=== PATIENT | male | born 1945 ===

== ENCOUNTER 2020-10-11 13:47 | Inpatient (IN) | payer MEDICARE, OTHER ==
[~2020-10-11] VITALS: Ht 167.6 cm; Wt 96.2 kg
[2020-10-11] MEDS ORDERED: COLACE 100100 MG/CAP PO (15:24)
[2020-10-11] MEDS ORDERED: PRINZIDE 25 MG-1 TAB PO (15:25)
[2020-10-11] MEDS ORDERED: FLOMAX 0.40.4 MG/CAP PO (15:25)
[2020-10-11] MEDS ORDERED: REMERON30 MG PO (15:26)
[2020-10-11] MEDS ORDERED: COREG 6.256.25 MG/TA PO (15:27)
[2020-10-11] MEDS ORDERED: GLUCOPHAGE500 MG/TAB PO (15:27)
[2020-10-11] MEDS ORDERED: GOOD NEIGH1200 MG/15 (15:28)
[2020-10-11 15:40] VITALS: BP 167/72; PULSE 65; TEMP 98
--- NOTE | 2020-10-11 18:35 | NUR ---
Pt assessment complete. Pt arrived via EMS to room 356, he is currently A/O but forgetful. He denies any pain. Breathing is even and unlabored on RA. Pt has daugherty DD, clear yellow urine. IV to R hand. POC discussed with patient who verbalizes understanding. Fall precautions in place. Will continue to monitor.
[2020-10-11 18:46] LABS: CREATININE, serum 7.84 (0.66-1.25); FRACTIONAL EXCRETION OF NA+ 22.7 %
[2020-10-11 19:51] VITALS: BP 128/68; PULSE 66; TEMP 97.8
--- NOTE | 2020-10-11 20:00 | NUR ---
Assessment complete. Patient is able to follow commands but is not oriented, only being able to state his year and tell time on clock in room. He has bilateral lower extremity edema with 1+ pitting; Heels are elevated on pillow. Guzman catheter in place is draining clear, yellow urine. Will continue to monitor.
[2020-10-11 22:51] LABS: URINE PROTEIN:CREAT RATIO 2.66 (0.00-0.14)
[2020-10-11 23:45] VITALS: BP 186/73; PULSE 58; TEMP 97.5
[2020-10-12] VITALS (8 sets, daily range): BP systolic 133–181; BP diastolic 61–82; PULSE 62–75; TEMP 97.4–98.4
--- NOTE | 2020-10-12 02:14 | NUR ---
Patient's BP 171/64 at 0130. PRN PO apresoline 25 mg administered. BP rechecked at this time and is 154/63. Will continue to monitor.
--- NOTE | 2020-10-12 05:45 | NUR ---
Patient's BP 181/61 at this time. 25 mg PO apresoline administered. Patient denies headache. Will continue to monitor.
[2020-10-12 05:55] LABS: BASO % 0.5 % (0.0-2.0); EOS # 0.4 (0.0-0.7); EOS % 4.8 % (0-4.0); GRAN # 6.3 (1.4-6.5); HEMOGLOBIN 12.9 g/dl (13.5-18.0); LYMPH # 1.3 (1.2-3.4); LYMPH % 14.5 % (20.0-51.0); MEAN CELL VOLUME 89 fl (80.0-100.0); MEAN CORPUSCULAR HEMOGLOBIN 29 pg (27.0-31.0); MEAN CORPUSCULAR HGB CONC 32 g/dl (33.0-37.0); MEAN PLATELET VOLUME 12.8 fl (7.4-10.4); MONO # 0.7 (0.1-0.6); MONO % 7.9 % (1.7-9.3); PLATELET COUNT 151 K/mm3 (130-400); REDCELL DISTRIBUTION WIDTH-CV 13.2 % (11.5-14.5)
[2020-10-12 06:08] LABS: ALBUMIN 3.7 gm/dL (3.5-5.0); CALCIUM 8.3 mg/dL (8.4-10.2); CREATININE, serum 7.62 (0.66-1.25); PHOSPHOROUS 5.5 mg/dL (2.5-4.5); POTASSIUM 4.1 mmol/L (3.4-5.0)
--- NOTE | 2020-10-12 07:28 | NUR ---
bedside shift report received from CLAUDIA Reynoso
--- NOTE | 2020-10-12 08:00 | NUR ---
bed alarm sounding and entered room and patient standing at bedside, he stated he just wanted to stand for a minute, allowed to stand for a few minutes and then assisted back into bed, full assessment completed, see interventions for further info, is alert and partially oriented, oriented to self and knew he was in the hospital but thought he was in [place], when reoriented then he remembered being here and meeting a new Dr yesterday
--- NOTE | 2020-10-12 08:17 | NUR ---
repositioned up in bed to eat breakfast
--- NOTE | 2020-10-12 09:58 | NUR ---
resting in bed, denies needs
--- NOTE | 2020-10-12 10:53 | NUR ---
physical therapy in and working with patient, ambulated in abbasi with steady gait
--- NOTE | 2020-10-12 11:30 | NUR ---
resting in bed with eyes closed
--- NOTE | 2020-10-12 12:08 | NUR ---
First visit from the middle or intermediate school principal. No needs right now.
--- NOTE | 2020-10-12 12:13 | NUR ---
dozing at intervals, awakened for VS and asks why he is here, tried to explain he needs to see a special Dr. is justs confused by this but is coopertive
--- NOTE | 2020-10-12 12:38 | NUR ---
bed alarm sounded and a nurse entered room, patient wanting to move around a little, assisted up and ambulated short distance, Dr Kang in to see patient
--- NOTE | 2020-10-12 13:09 | NUR ---
bedside report given to CLAUDIA Mir
--- NOTE | 2020-10-12 15:55 | NUR ---
SW attempted intake however patient was asleep.
--- NOTE | 2020-10-12 20:52 | NUR ---
PT IN BED WITH HOB ELEVATED TO 60DEGREE ANGLE WITH CALL LIGHT WITHIN REACH. PT DENIES PAIN OR DISCOMFORT. PT IS CONFUSED. PT THINKS THAT HE IS AT A [facility]OT[facility]. PT HAS NO NEEDS AT THIS TIME, CALL LIGHT WITHIN REACH.
[2020-10-13 04:10] VITALS: BP 152/62; PULSE 63; TEMP 97.9
[2020-10-13 06:36] LABS: BASO % 0.5 % (0.0-2.0); EOS # 0.5 (0.0-0.7); EOS % 5.7 % (0-4.0); GRAN # 5.8 (1.4-6.5); GRAN % 66.6 % (42.2-75.2); HEMOGLOBIN 11.8 g/dl (13.5-18.0); LYMPH # 1.5 (1.2-3.4); LYMPH % 17.4 % (20.0-51.0); MEAN CELL VOLUME 87 fl (80.0-100.0); MEAN CORPUSCULAR HEMOGLOBIN 28 pg (27.0-31.0); MEAN CORPUSCULAR HGB CONC 33 g/dl (33.0-37.0); MEAN PLATELET VOLUME 12.5 fl (7.4-10.4); MONO # 0.8 (0.1-0.6); MONO % 9.5 % (1.7-9.3); PLATELET COUNT 150 K/mm3 (130-400); RED BLOOD COUNT 4.16 M/mm3 (4.20-5.60); REDCELL DISTRIBUTION WIDTH-CV 13.1 % (11.5-14.5)
[2020-10-13 06:51] LABS: ALBUMIN 3.4 gm/dL (3.5-5.0); CALCIUM 7.9 mg/dL (8.4-10.2); CREATININE, serum 6.13 (0.66-1.25); POTASSIUM 3.6 mmol/L (3.4-5.0)
--- NOTE | 2020-10-13 06:54 | NUR ---
PT HAD NO ISSUES OR CONCERNS DURING THE NIGHT. PT SLEPT WELL, WITH CALL LIGHT WITHIN REACH AND BED ALARM ON.
--- NOTE | 2020-10-13 07:01 | NUR ---
bedside shift report received from CLAUDIA Vega
--- NOTE | 2020-10-13 07:45 | NUR ---
bed alarm sounding, and he is wanting to get up, assisted out of bed and into recliner to watch TV and wait for breakfast, am hygikerry provided
[2020-10-13 07:50] VITALS: BP 153/81; PULSE 62; TEMP 98.4
--- NOTE | 2020-10-13 09:30 | NUR ---
beginning to try and get up out of chair, states he is ready to go back to bed, assisted up and into bed, lights off and he will try and rest, catheter care provided
[2020-10-13 11:33] VITALS: BP 145/83; PULSE 64; TEMP 97.9
--- NOTE | 2020-10-13 11:40 | NUR ---
appears to be sleeping, awakened and obtained blood sugar
--- NOTE | 2020-10-13 13:17 | NUR ---
repositioned up in bed and is ready for lunch
--- NOTE | 2020-10-13 13:56 | NUR ---
KAR received a call from patients nurse about a referrla to a swing bed facility for patient discharge is planned for 10/14/2020. KAR met with patient at his bedside to attempt to complete assessment, however patient could not tolerate( was not oriented to person, place, time), so KAR contacted patients daughter Cornelius [phone] who is patients EMR and next of kin to complete assessment. Patient lives in [facility] assisted living at [facility]. HE is somewhat independent with ADL's however has to be promted to complete tasks, and eat due to dementia. Patients PCP is Dr. Ng with no upcoming appointments. Per Cornelius, patient receives his medications from [facility] the [facility]. Cornelius expressed concern because she had not heard about her fathers condition. KAR informed her that I would contact patients nurse and ask her to follow up. We discussed discharge planning for patient, and daughter indicated that she would perfer for her father to continue to reside in [place] for care. He had previously been in [facility] KAR did contact [facility] at [phone] and spoke with Nurse Boone, and then Director Technical Anh who indicated that the facility does have a swing bed unit. KAR faxed updates and information to Anh at [phone]. Kar also informed patients nurse that [facility] would accept patient for swing bed services, and asked if she would call patients daughter and provide an update. KAR will contact [facility] tomorrow to arrange for transport.
--- NOTE | 2020-10-13 14:17 | NUR ---
daugherty catheter discontinued, instructed him to call when he needs to void, he says OK but bed alarm is on
--- NOTE | 2020-10-13 14:21 | NUR ---
CALLED Isacc JOY DAUGHER WITH AN UPDATE
--- NOTE | 2020-10-13 15:00 | NUR ---
ambulating in abbasi with standby assistance, then back to room and will sit up in recliner for a while, denies need to void
[2020-10-13 15:36] VITALS: BP 130/74; PULSE 70; TEMP 97.9
--- NOTE | 2020-10-13 16:22 | NUR ---
ready to go back to bed, ambulated into bathroom but was unable to void, then assisted out and into bed
--- NOTE | 2020-10-13 18:49 | NUR ---
bedside shift report given to CLAUDIA Reynoso
[2020-10-13 20:00] VITALS: BP 142/78; PULSE 70; TEMP 97.8
--- NOTE | 2020-10-13 20:00 | NUR ---
Assessment complete. Patient is able to answer orientation questions better than two nights ago. He is able to state where he is, his birthday, the year and the president. He has no edema and no complaints of pain. He is transferred from bed to chair at this time, per patient request. Gait is slightly swaying but steady. No skin issues noted. Will continue to monitor.
--- NOTE | 2020-10-13 20:30 | NUR ---
Bladder scane performed at this time. Result is 355 ml. Patient is assisted to bathroom to void and voids approx 110 ml. Post void bladder scan performed is 172 ml. Will continue to monitor.
[2020-10-14] VITALS (7 sets, daily range): BP systolic 93–159; BP diastolic 50–90; PULSE 57–81; TEMP 97.2–98.7
--- NOTE | 2020-10-14 02:28 | NUR ---
Patient has voided an unmeasured amount into toilet. Bladder scan performed post-void and result was 68 ml. Will continue to monitor.
[2020-10-14 06:51] LABS: BASO % 0.3 % (0.0-2.0); EOS # 0.5 (0.0-0.7); EOS % 5.5 % (0-4.0); GRAN # 6.1 (1.4-6.5); GRAN % 68.7 % (42.2-75.2); HEMATOCRIT 39.5 % (42.0-52.0); HEMOGLOBIN 12.9 g/dl (13.5-18.0); LYMPH # 1.6 (1.2-3.4); LYMPH % 18.1 % (20.0-51.0); MEAN CELL VOLUME 87 fl (80.0-100.0); MEAN CORPUSCULAR HEMOGLOBIN 28 pg (27.0-31.0); MEAN CORPUSCULAR HGB CONC 33 g/dl (33.0-37.0); MEAN PLATELET VOLUME 12.6 fl (7.4-10.4); MONO # 0.6 (0.1-0.6); MONO % 6.8 % (1.7-9.3); PLATELET COUNT 180 K/mm3 (130-400); RED BLOOD COUNT 4.55 M/mm3 (4.20-5.60); REDCELL DISTRIBUTION WIDTH-CV 13.1 % (11.5-14.5)
[2020-10-14 07:10] LABS: ALBUMIN 3.8 gm/dL (3.5-5.0); CALCIUM 8.1 mg/dL (8.4-10.2); CREATININE, serum 5.05 (0.66-1.25); PHOSPHOROUS 5.3 mg/dL (2.5-4.5); POTASSIUM 3.8 mmol/L (3.4-5.0)
--- NOTE | 2020-10-14 07:56 | NUR ---
Pt awake and alert this morning, no C/O pain at this time. Shift assessmenrts complete, left Pt call light in reach, bed in lowest position, alarm on.
--- NOTE | 2020-10-14 11:25 | NUR ---
Follow up visit from the roof mechanic. No needs right now.
--- NOTE | 2020-10-14 16:25 | NUR ---
Flowers Salesperson spoke with Anh, Dungeon Master at [facility] who advised they are able to accept patient for skilled stay upon discharge. KAR collaborated with Dr. Kang who advised patient is not stable for discharge to SNF but could discharge to Swing Bed. Dr. Kang would like a referral sent to [facility]. KAR contacted Suzanne at [facility] and faxed referral. Suzanne states they do not have a bed today. Suzanne reports bed availability changes day to day. KAR also faxed a referral to [facility] as they have bed availability. Hollie reports they are following referral but felt patient was a better fit for placement at [facility] at this time. [facility] is able to accept at discharge. KAR will continue to follow.
--- NOTE | 2020-10-14 18:17 | NUR ---
Pt resting in the room today, no C/O pain. VS have remained stable.
--- NOTE | 2020-10-14 21:45 | NUR ---
Pt assessment completed and documented. Pt resting in bed with eyes closed upon entering room. Pt alert and oriented to person only. Pt reoriented to place, time and situation. INT to right hand CDI. Pt denies any needs/concerns at this time. Fall precautions in place. Bed alarm on. Call light within reach. Will continue to monitor
[2020-10-15 04:59] VITALS: BP 138/62; PULSE 62; TEMP 97.4
--- NOTE | 2020-10-15 05:25 | NUR ---
Pt rested intermittently overnight. Has remained confused and disoriented. Up multiple times to the bathroom with urine output however has refused to use to urinal for accurate I&O. When handing pt urinal and explaining to him why we need him to use it, pt will get upset at staff and sit the urinal down and continue to use the toilet. No reports of pain overnight. Pt denies any needs/concerns at this time. Call light within reach. Bed alarm on.
[2020-10-15 05:57] LABS: BASO % 0.4 % (0.0-2.0); EOS # 0.5 (0.0-0.7); EOS % 5.2 % (0-4.0); GRAN # 6.4 (1.4-6.5); GRAN % 67.1 % (42.2-75.2); HEMATOCRIT 37.5 % (42.0-52.0); HEMOGLOBIN 12.4 g/dl (13.5-18.0); LYMPH # 1.7 (1.2-3.4); LYMPH % 17.8 % (20.0-51.0); MEAN CELL VOLUME 88 fl (80.0-100.0); MEAN CORPUSCULAR HEMOGLOBIN 29 pg (27.0-31.0); MEAN CORPUSCULAR HGB CONC 33 g/dl (33.0-37.0); MEAN PLATELET VOLUME 12.6 fl (7.4-10.4); MONO # 0.8 (0.1-0.6); MONO % 8.8 % (1.7-9.3); PLATELET COUNT 176 K/mm3 (130-400); RED BLOOD COUNT 4.28 M/mm3 (4.20-5.60); REDCELL DISTRIBUTION WIDTH-CV 13.2 % (11.5-14.5)
[2020-10-15 06:04] LABS: ALBUMIN 3.6 gm/dL (3.5-5.0); CALCIUM 7.9 mg/dL (8.4-10.2); CREATININE, serum 4.58 (0.66-1.25); PHOSPHOROUS 5.2 mg/dL (2.5-4.5); POTASSIUM 3.8 mmol/L (3.4-5.0)
[2020-10-15 08:25] VITALS: BP 102/69; PULSE 65; TEMP 98.8
--- NOTE | 2020-10-15 09:54 | NUR ---
Tubular Riveter contacted Suzanne with [facility]. She reports they do not have bed available today, there maybe a bed will be available on 10/16. SW to check back on 10/16. KAR contacted the patient's daughter, Cornelius regarding the discharge plan and transportation. She states there is no family or anyone to be able to assist with transportation. Cornelius states she will get an Uber for the patient, if needed. KAR contacted [facility] to inquire about transportation services. Marcella the KAR at [facility] reports they can only provide transportation if the patient is returning to [facility]. KAR contacted Hollie with [facility] and they declined the patient for post acute rehab. KAR collaborated the above information with Dr. Jorge Luis Robert' nurse and the patient's nurse.
[2020-10-15 11:39] VITALS: BP 133/78; PULSE 62; TEMP 97.7
[2020-10-15 16:03] VITALS: BP 116/62; PULSE 63; TEMP 98.4
--- NOTE | 2020-10-15 19:03 | NUR ---
PATIENT HAD UNEVENTFUL SHIFT. PATIENT DENIED PAIN THROUGHOUT THE DAY. PATIENT CURRENTLY RESTING IN BED. CALL LIGHT IN REACH. BED ALARM ON. NO NEEDS AT THIS TIME. REPORT GIVEN TO CLAUDIA ELISE.
[2020-10-15 19:49] VITALS: BP 117/53; PULSE 69; TEMP 97.7
--- NOTE | 2020-10-15 19:53 | NUR ---
Pt assessment completed and documented. Pt resting in bed with eyes closed upon entry. States he is tired but will not be able to get any sleep tonight. Pt alert and oriented to person, place and time. Pt reoriented to situation. Denies pain. INT to right hand CDI. Pt denies any needs/concerns. Call light within reach. Bed alarm on. Will continue to monitor.
[2020-10-15 23:37] VITALS: BP 110/63; PULSE 58; TEMP 98.4
[2020-10-16 03:23] VITALS: BP 131/64; PULSE 61; TEMP 97.9
--- NOTE | 2020-10-16 05:26 | NUR ---
Pt had uneventful night. Rested well overnight. No reports of pain. Continues to refuse to use the urinal. Call light within reach. Bed alarm on.
[2020-10-16 06:28] LABS: ALBUMIN 3.4 gm/dL (3.5-5.0); CREATININE, serum 4.06 (0.66-1.25); PHOSPHOROUS 5.6 mg/dL (2.5-4.5); POTASSIUM 3.8 mmol/L (3.4-5.0)
[2020-10-16 06:30] LABS: BASO # 0.1 (0.0-0.2); BASO % 0.6 % (0.0-2.0); EOS # 0.4 (0.0-0.7); EOS % 5.6 % (0-4.0); GRAN # 4.8 (1.4-6.5); GRAN % 60.2 % (42.2-75.2); HEMOGLOBIN 11.4 g/dl (13.5-18.0); LYMPH # 1.7 (1.2-3.4); MEAN CELL VOLUME 87 fl (80.0-100.0); MEAN CORPUSCULAR HEMOGLOBIN 28 pg (27.0-31.0); MEAN CORPUSCULAR HGB CONC 33 g/dl (33.0-37.0); MEAN PLATELET VOLUME 12.9 fl (7.4-10.4); MONO # 0.9 (0.1-0.6); PLATELET COUNT 174 K/mm3 (130-400); RED BLOOD COUNT 4.01 M/mm3 (4.20-5.60); REDCELL DISTRIBUTION WIDTH-CV 13.2 % (11.5-14.5)
[2020-10-16 06:37] LABS: HEMATOCRIT 34.7 % (42.0-52.0)
--- NOTE | 2020-10-16 06:55 | NUR ---
appears to be sleeping, bedside shift report received from CLAUDIA Rucker
[2020-10-16 07:13] VITALS: BP 131/53; PULSE 64; TEMP 97.7
--- NOTE | 2020-10-16 07:27 | NUR ---
physical therapy in to work with patient and is ambulating in abbasi
--- NOTE | 2020-10-16 07:45 | NUR ---
sitting up in chair after ambulating in abbasi with therapy, ready for breakfast, full assessment completed, see interventions for further info
--- NOTE | 2020-10-16 08:22 | NUR ---
Abstract Searcher attempted to contact JO Palacios at [facility], left message. SW contacted Jesusita the charge nurse at [facility]. She reports that physicians are rounding at this time and to contact her at 1000 this day to check on bed availablity. Marcella from [facility] left message for this SW and reports they will be able to transport the patient to discharge to [facility]. KAR attempted to contact marcia Naranjo.
--- NOTE | 2020-10-16 09:58 | NUR ---
in bed and appears to be sleeping, resp quiet and easy
--- NOTE | 2020-10-16 10:32 | NUR ---
occupational therapy in to work with patient
[2020-10-16 11:10] VITALS: BP 118/64; PULSE 59; TEMP 97.9
--- NOTE | 2020-10-16 11:20 | NUR ---
The patient is to tentatively discharge today, 10/16 to [facility] for post acute rehab. Then back to [facility] Wendy Naranjo Telephoner with [facility] reports they can transport the patient at 1230 to [facility]. Telephoner informed the team and they were in agreeance. SW to fax discharge orders. SW contacted the patient's daughter, Cornelius with the above update, she was in agreeance. KAR collaborated the above information with the patient's nurse and Dr. Kang.
[2020-10-16] MEDS ORDERED: PRINIVIL2.5 MG PO (11:27)
--- NOTE | 2020-10-16 11:41 | NUR ---
WAREHOUSEMAN in and assisting him with getting dressed for discharge
--- NOTE | 2020-10-16 11:50 | NUR ---
up to bathroom with assistance and voids qs, then to recliner for lunch, INT discontinued and he is ready for discharge
[2020-10-16 12:25] VITALS: BP 118/64; PULSE 59; TEMP 97.9
--- NOTE | 2020-10-16 12:38 | NUR ---
discharged per to care of [facility] staff
--- NOTE | 2020-10-16 13:24 | NUR ---
report called to CLAUDIA Palacios at [facility]
== END 2020-10-16 12:38 | disposition swing bed (61) | DRG 684 ==
LOC: MEDICAL 13:47
PROVIDERS: Nurse Practitioner; ADMIT Internal Medicine Nephrology
DX: N17.0 Acute kidney failure with tubular necrosis (principal); G30.9 Alzheimer's disease, unspecified; F02.80 Dementia in other diseases classified elsewhere, unspecified severity, without behavioral disturbance, psychotic disturbance, mood disturbance, and anxiety; Z20.828 Contact with and (suspected) exposure to other viral communicable diseases; N40.0 Benign prostatic hyperplasia without lower urinary tract symptoms; E11.22 Type 2 diabetes mellitus with diabetic chronic kidney disease; N18.30 Chronic kidney disease, stage 3 unspecified; I25.10 Atherosclerotic heart disease of native coronary artery without angina pectoris; I12.9 Hypertensive chronic kidney disease with stage 1 through stage 4 chronic kidney disease, or unspecified chronic kidney disease; M25.562 Pain in left knee; E78.5 Hyperlipidemia, unspecified; Z79.84 Long term (current) use of oral hypoglycemic drugs; Z86.73 Personal history of transient ischemic attack (TIA), and cerebral infarction without residual deficits; Z90.49 Acquired absence of other specified parts of digestive tract
CPT/HCPCS: J1815